=== PATIENT | male | born 1955 | race African-American/Black ===

== ENCOUNTER 2016-10-24 08:50 | Emergency (ER) | payer OTHER ==
[~2016-10-24] VITALS: Ht 180.3 cm; Wt 84.0 kg
[~2016-10-24 08:50] MED LIST: ASPIR-TRIN325 M1 PO; GLYBURIDE5 MG PO; Glucotrol PO; HABITROL,NICODE21 MG TD; LYRICA50 MG PO; METFORMIN HCL1000 MG PO; METFORMIN HCL500 MG PO; Zocor PO
[2016-10-24] MEDS ORDERED: GLIPIZIDE5 MG PO (08:56)
[2016-10-24] MEDS ORDERED: FLEXERIL10 MG PO (10:58)
[2016-10-24] MEDS ORDERED: PERCOCET 5/31 TABLET PO (10:58)
[2016-10-24 11:27] VITALS: BP 146/91
== END 2016-10-24 11:30 | disposition home or self-care (01) ==
LOC: EME 08:50
DX: M54.12 Radiculopathy, cervical region (principal); M79.601 Pain in right arm; E11.9 Type 2 diabetes mellitus without complications; Z79.84 Long term (current) use of oral hypoglycemic drugs; F17.200 Nicotine dependence, unspecified, uncomplicated
CPT/HCPCS: 72040; 99281; 99285

== ENCOUNTER 2016-10-29 08:50 | Emergency (ER) | payer OTHER ==
[~2016-10-29] VITALS: Ht 180.3 cm; Wt 89.9 kg
[~2016-10-29 08:50] MED LIST changes: +FLEXERIL10 MG PO; +GLIPIZIDE5 MG PO; +PERCOCET 5/31 TABLET PO
[2016-10-29 11:02] LABS: HEMATOCRIT 36.3 % (38.0-50.0); MCH 31.6 PG (29.0-34.0); MCHC 32.5 G/DL (30.0-36.0); MCV 97.1 FL (86-99); MEAN PLAT.VOLUME 10.5 uM^3 (9.0-12.4); PLATELET COUNT 204 K/uL (156-360); RED BLOOD COUNT 3.74 M/uL (4.00-5.50); WHITE BLOOD COUNT 7.5 K/uL (4.1-10.2)
[2016-10-29 11:11] LABS: CHLORIDE 105 mEq/L (99-109); POTASSIUM 4.1 mEq/L (3.7-5.4); SODIUM 137 mEq/L (136-147)
[2016-10-29 11:13] LABS: GLUCOSE 131 mg/dL (70-99)
[2016-10-29 11:14] LABS: ANION GAP 5 MEQ/L (2-14)
[2016-10-29 11:17] LABS: GFR ESTIMATE (CALCULATED) > 59 mL/min/
[2016-10-29 11:18] LABS: UREA NITROGEN (BUN) 10 mg/dL (9-23)
[2016-10-29 12:27] LABS: EOSINOPHIL (%) 1.7 % (0-5); EOSINOPHIL COUNT 0.1 K/uL (0-0.3); IMMATURE GRANULOCYTE (%) 0.4 % (0.0-0.7); INSTRUMENT ABS NEUTROPHIL CT 4.5 K/uL; LYMPHOCYTE COUNT 2.1 K/uL (1.0-2.8); MONOCYTE (%) 9.1 % (3-12); MONOCYTE COUNT 0.7 K/uL (0-0.8); NEUTROPHIL (%) 60.8 % (45-76); NEUTROPHIL COUNT 4.5 K/uL (1.8-6.4)
[2016-10-29 12:54] LABS: POINT-OF-CARE METER ID UU14100415
[2016-10-29] MEDS ORDERED: PERCOCET 5/31 TABLET PO (13:58)
[2016-10-29] MEDS ORDERED: MEDROL DOSEPAK4 MG PO (14:02)
[2016-10-29 14:33] VITALS: BP 107/73
[2016-11-02] MEDS ORDERED: NORCO 5/3251 TABLET PO (14:16)
[2016-11-02] MEDS ORDERED: LO-DOSE ASPIRIN81 M2 PO (14:17)
== END 2016-10-29 14:36 | disposition home or self-care (01) ==
LOC: EME 08:50
PROVIDERS: Emergency Medicine
DX: M50.222 Other cervical disc displacement at C5-C6 level (principal); E11.9 Type 2 diabetes mellitus without complications; Z79.84 Long term (current) use of oral hypoglycemic drugs; F17.200 Nicotine dependence, unspecified, uncomplicated
CPT/HCPCS: 71020; 72141; 80048; 82948; 85025; 93005; 99281; 99284

== ENCOUNTER 2016-10-31 10:25 | Emergency (ER) | payer OTHER ==
[~2016-10-31] VITALS: Ht 180.3 cm; Wt 86.5 kg
[~2016-10-31 10:25] MED LIST changes: +MEDROL DOSEPAK4 MG PO
[2016-10-31] MEDS ORDERED: PERCOCET 5/31 TABLET PO (11:41)
[2016-10-31 12:45] VITALS: BP 110/78
[2016-11-02] MEDS ORDERED: NORCO 5/3251 TABLET PO (14:16)
[2016-11-02] MEDS ORDERED: LO-DOSE ASPIRIN81 M2 PO (14:17)
== END 2016-10-31 13:09 | disposition home or self-care (01) ==
LOC: EME → EDBD 10:25 → EME 13:09
DX: M50.10 Cervical disc disorder with radiculopathy, unspecified cervical region (principal); E11.9 Type 2 diabetes mellitus without complications; Z79.84 Long term (current) use of oral hypoglycemic drugs
CPT/HCPCS: 99281; 99284

== ENCOUNTER 2016-11-05 08:55 | Emergency (ER) | payer OTHER ==
[~2016-11-05] VITALS: Ht 180.3 cm; Wt 83.8 kg
[~2016-11-05 08:55] MED LIST changes: +LO-DOSE ASPIRIN81 M2 PO; +NORCO 5/3251 TABLET PO
[2016-11-05 11:05] VITALS: BP 109/72
== END 2016-11-05 12:32 | disposition home or self-care (01) ==
LOC: EME 08:55
DX: M54.12 Radiculopathy, cervical region (principal); E11.9 Type 2 diabetes mellitus without complications; Z87.442 Personal history of urinary calculi; G89.29 Other chronic pain; Z79.82 Long term (current) use of aspirin; Z79.84 Long term (current) use of oral hypoglycemic drugs; F17.200 Nicotine dependence, unspecified, uncomplicated
CPT/HCPCS: 99281; 99284

== ENCOUNTER 2016-11-09 09:13 | Observation (INO) | payer OTHER ==
[~2016-11-09] VITALS: Ht 180.3 cm; Wt 79.3 kg
[2016-11-09 16:43] LABS: ADD MIUA? YES; BILIRUBIN NEGATIVE; BLOOD NEGATIVE; COLOR YELLOW ((YELLOW)); GLUCOSE (STRIP) 50; KETONES NEGATIVE; LEUKOCYTES TRACE; NITRITE NEGATIVE; PROTEIN (STRIP) NEGATIVE; SPECIFIC GRAVITY 1.015 (1.000-1.030)
[2016-11-09 16:49] LABS: HEMATOCRIT 38.8 % (38.0-50.0); MCH 31.1 PG (29.0-34.0); MCV 94.4 FL (86-99); MEAN PLAT.VOLUME 10.5 uM^3 (9.0-12.4); PLATELET COUNT 242 K/uL (156-360); RBC DIS.WIDTH-CV 12.2 % (11.8-14.6); RBC DIS.WIDTH-SD 42.7 % (39-53); RED BLOOD COUNT 4.11 M/uL (4.00-5.50); WHITE BLOOD COUNT 6.6 K/uL (4.1-10.2)
[2016-11-09 16:49] LABS: BACTERIA RARE /HPF; EPITHELIAL CELLS RARE /HPF; MUCUS TRACE /LPF; RED BLOOD CELLS 0-5 /HPF (0-5); UCUL ADDED? NO
[2016-11-09 16:53] LABS: ADD MEDTOX COMMENT Y; AMPHETAMINE NEGATIVE (500 ng/mL); BARBITURATES NEGATIVE (200 ng/mL); BENZODIAZEPINES NEGATIVE (150 ng/mL); COCAINE PRESUMPTIVE POSITIVE (150 ng/mL); INTERNAL CONTROLS VALID? YES; METHADONE NEGATIVE (200 ng/mL); METHAMPHETAMINE NEGATIVE (500 ng/mL); OPIATES (MORPHINE) PRESUMPTIVE POSITIVE (100 ng/mL); OXYCODONE NEGATIVE (100 ng/mL); PHENCYCLIDINE NEGATIVE (25 ng/mL); PROPOXYPHENE NEGATIVE (300 ng/mL); THC CANNABINOIDS NEGATIVE (50 ng/mL); TRICYCLIC ANTIDEPRESSANTS NEGATIVE (300 ng/mL)
[2016-11-09 17:00] LABS: CHLORIDE 103 mEq/L (99-109); POTASSIUM 3.5 mEq/L (3.7-5.4); SODIUM 142 mEq/L (136-147)
[2016-11-09 17:01] LABS: GLUCOSE 137 mg/dL (70-99)
[2016-11-09 17:03] LABS: ANION GAP 11 MEQ/L (2-14)
[2016-11-09 17:05] LABS: GFR ESTIMATE (CALCULATED) > 59 mL/min/
[2016-11-09 17:06] LABS: UREA NITROGEN (BUN) 10 mg/dL (9-23)
[2016-11-09 17:13] LABS: TROP-I INTERPRETATION NEGATIVE; TROPONIN-I < 0.01 ng/mL (0.0-0.30)
[2016-11-09 17:22] LABS: OPIATES QUANTITATIVE VALUE 0 NG/ML
[2016-11-09 17:59] LABS: EOSINOPHIL (%) 1.2 % (0-5); EOSINOPHIL COUNT 0.1 K/uL (0-0.3); IMMATURE GRANULOCYTE (%) 0.2 % (0.0-0.7); INSTRUMENT ABS NEUTROPHIL CT 2.5 K/uL; LYMPHOCYTE COUNT 3.2 K/uL (1.0-2.8); MONOCYTE (%) 12.3 % (3-12); MONOCYTE COUNT 0.8 K/uL (0-0.8); NEUTROPHIL COUNT 2.5 K/uL (1.8-6.4); PLAT.SUFFICIENCY ADEQUATE
[2016-11-10 07:15] VITALS: BP 143/89
[2016-11-10 08:02] LABS: POINT-OF-CARE METER ID UU14149397
[2016-11-10 12:25] VITALS: BP 133/85
[2016-11-10 15:42] VITALS: BP 137/88
== END 2016-11-10 17:28 | disposition short-term general hospital (02) ==
LOC: EME → EDBD 09:13 → EDOF 11-10 05:08 → 3EAST 11-10 07:05
PROVIDERS: Emergency Medicine; Internal Medicine
DX: M50.222 Other cervical disc displacement at C5-C6 level (principal); M50.221 Other cervical disc displacement at C4-C5 level; M50.223 Other cervical disc displacement at C6-C7 level; E11.9 Type 2 diabetes mellitus without complications; Z87.442 Personal history of urinary calculi; F17.200 Nicotine dependence, unspecified, uncomplicated; G95.20 Unspecified cord compression; Z91.19 Patient's noncompliance with other medical treatment and regimen
CPT/HCPCS: 71010; 72141; 80048; 81003; 82948; 84484; 84999; 85025; 99281; 99285; G0378; G8978 GP CK; G8979 CJ; G8987 GO CJ; G8988 CI; J1100; J1644; J1815; J2270

== ENCOUNTER 2016-11-14 11:09 | Emergency (ER) | payer OTHER ==
[~2016-11-14] VITALS: Ht 180.3 cm; Wt 79.1 kg
[2016-11-14] MEDS ORDERED: CYCLOBENZAPRINE10 MG PO (11:23)
[2016-11-14] MEDS ORDERED: OXYCODONE HCL10 MG PO (11:23)
[2016-11-14 12:03] LABS: BASOPHIL COUNT 0.1 K/uL (0-0.1); EOSINOPHIL (%) 0.3 % (0-5); HEMATOCRIT 39.3 % (38.0-50.0); IMMATURE GRANULOCYTE (%) 0.5 % (0.0-0.7); IMMATURE GRANULOCYTE COUNT 0.1 K/uL; INSTRUMENT ABS NEUTROPHIL CT 9.6 K/uL; LYMPHOCYTE COUNT 1.9 K/uL (1.0-2.8); MCH 31.3 PG (29.0-34.0); MCHC 33.3 G/DL (30.0-36.0); MCV 93.8 FL (86-99); MEAN PLAT.VOLUME 10.7 uM^3 (9.0-12.4); MONOCYTE (%) 8.5 % (3-12); MONOCYTE COUNT 1.1 K/uL (0-0.8); NEUTROPHIL (%) 75.7 % (45-76); NEUTROPHIL COUNT 9.6 K/uL (1.8-6.4); PLATELET COUNT 252 K/uL (156-360); RBC DIS.WIDTH-SD 41.7 % (39-53); RED BLOOD COUNT 4.19 M/uL (4.00-5.50); WHITE BLOOD COUNT 12.7 K/uL (4.1-10.2)
[2016-11-14 12:15] LABS: CHLORIDE 98 mEq/L (99-109); POTASSIUM 3.6 mEq/L (3.7-5.4); SODIUM 138 mEq/L (136-147)
[2016-11-14 12:17] LABS: GLUCOSE 146 mg/dL (70-99)
[2016-11-14 12:18] LABS: ANION GAP 14 MEQ/L (2-14)
[2016-11-14 12:21] LABS: GFR ESTIMATE (CALCULATED) > 59 mL/min/
[2016-11-14 12:22] LABS: UREA NITROGEN (BUN) 7 mg/dL (9-23)
[2016-11-14 13:39] LABS: ADD MIUA? YES; BILIRUBIN NEGATIVE; BLOOD SMALL; COLOR YELLOW ((YELLOW)); GLUCOSE (STRIP) 50; KETONES 80; LEUKOCYTES TRACE; NITRITE NEGATIVE; PROTEIN (STRIP) 100; SPECIFIC GRAVITY 1.014 (1.000-1.030); UROBILINOGEN 0.2 MG/DL (0.2-1.0)
[2016-11-14 13:50] LABS: BACTERIA NONE SEEN /HPF; EPITHELIAL CELLS RARE /HPF; HYALINE CASTS 0-5 /LPF; MUCUS TRACE /LPF; RED BLOOD CELLS 0-5 /HPF (0-5); WHITE BLOOD CELLS 20-30 /HPF (0-5)
[2016-11-14] MEDS ORDERED: CIPRO500 MG PO (16:51)
[2016-11-14 18:51] VITALS: BP 146/93
== END 2016-11-14 18:50 | disposition home or self-care (01) ==
LOC: EME 11:09
PROVIDERS: Emergency Medicine
DX: R53.1 Weakness (principal); N39.0 Urinary tract infection, site not specified; E11.9 Type 2 diabetes mellitus without complications; Z79.84 Long term (current) use of oral hypoglycemic drugs; Z98.1 Arthrodesis status; F17.200 Nicotine dependence, unspecified, uncomplicated
CPT/HCPCS: 70450; 72125; 80048; 81003; 83605; 85025; 87086; 99281; 99285; G8978 GP CM; G8979 GP CK; J0696; J7050

== ENCOUNTER 2016-11-22 14:28 | Emergency (ER) | payer OTHER ==
[~2016-11-22] VITALS: Ht 180.3 cm; Wt 78.2 kg
[~2016-11-22 14:28] MED LIST changes: +CIPRO500 MG PO; +CYCLOBENZAPRINE10 MG PO; +OXYCODONE HCL10 MG PO
[2016-11-22 15:43] VITALS: BP 100/87
== END 2016-11-22 15:43 | disposition home or self-care (01) ==
LOC: EME 14:28
DX: M54.2 Cervicalgia (principal); Z76.0 Encounter for issue of repeat prescription; Z98.890 Other specified postprocedural states
CPT/HCPCS: 99281; 99282

== ENCOUNTER 2017-08-28 13:43 | Emergency (ER) | payer OTHER ==
[~2017-08-28] VITALS: Ht 180.3 cm; Wt 72.7 kg
[2017-08-28 14:32] LABS: HEMATOCRIT 38.1 % (38.0-50.0); MCH 33.2 PG (29.0-34.0); MCHC 34.1 G/DL (30.0-36.0); MCV 97.2 FL (86-99); RBC DIS.WIDTH-SD 46.2 % (39-53); RED BLOOD COUNT 3.92 M/uL (4.00-5.50); WHITE BLOOD COUNT 6.2 K/uL (4.1-10.2)
[2017-08-28 14:44] LABS: CHLORIDE 107 mEq/L (99-109); POTASSIUM 4.1 mEq/L (3.7-5.4); SODIUM 142 mEq/L (136-147)
[2017-08-28 14:46] LABS: GLUCOSE 106 mg/dL (70-99)
[2017-08-28 14:50] LABS: CREATININE 1.1 mg/dL (0.6-1.3); GFR ESTIMATE (CALCULATED) > 59 mL/min/ (58.99-99999)
[2017-08-28 14:51] LABS: UREA NITROGEN (BUN) 14 mg/dL (9-23)
[2017-08-28 14:55] LABS: TROP-I INTERPRETATION NEGATIVE; TROPONIN-I 0.02 ng/mL (0.0-0.30)
[2017-08-28] MEDS ORDERED: MEDROL DOSEPAK4 MG PO (15:16)
[2017-08-28] MEDS ORDERED: ZITHROMAX Z-PA250 MG PO (15:16)
[2017-08-28] MEDS ORDERED: PERCOCET 5/31 TABLET PO (15:16)
[2017-08-28 15:21] LABS: PLAT.SUFFICIENCY ADEQUATE; PLATELET COUNT 214 K/uL (156-360)
[2017-08-28 15:29] VITALS: BP 139/89
== END 2017-08-28 15:33 | disposition home or self-care (01) ==
LOC: EME 13:43
DX: R07.81 Pleurodynia (principal); E11.9 Type 2 diabetes mellitus without complications; Z79.84 Long term (current) use of oral hypoglycemic drugs; F17.200 Nicotine dependence, unspecified, uncomplicated
CPT/HCPCS: 71046; 80048; 84484; 85027; 93005; 99281; 99285